=== PATIENT | female | born 1990 | race Hispanic/Latino ===

== ENCOUNTER 2017-12-06 10:38 | Emergency (ER) | payer OTHER, MEDICAID ==
[2017-12-06 10:43] VITALS: BMI 26.6
[2017-12-06 10:44] VITALS: TEMP 98.1
[2017-12-06] MEDS ORDERED: Morphine 5 MG/ML SYRINGE IM STA (10:52)
--- NOTE | 2017-12-06 11:09 | ED PDOC ---
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 Patient has a history of ligament tears and had knee surgery 10 years ago. She currently takes oral control. PMD: None Past Medical History Reviewed: Historical Data, Nursing Documentation, Vital Signs Vital Signs: Last Vital Signs Temp 98.1 F 12/06/17 10:43 Pulse 106 H 12/06/17 10:43 Resp 17 12/06/17 10:43 BP 144/79 12/06/17 10:43 Pulse Ox 100 12/06/17 10:43 - Medical History PMH: No Chronic Diseases - Surgical History Other surgeries: knee surgery - Family History Family History: States: Unknown Family Hx - Social History Alcohol: Occasional - Home Medications Home Medications: Ambulatory Orders Medication Instructions Recorded Ibuprofen [Motrin] 600 mg PO Q6H PRN #20 tab 12/06/17 - Allergies Allergies/Adverse Reactions: Allergies Allergy/AdvReac Type Severity Reaction Status Date / Time No Known Allergies Allergy Verified 12/06/17 10:51 Review of Systems ROS Statement: Except As Marked, All Systems Reviewed And Found Negative Musculoskeletal: Positive for: Leg Pain (right knee) Physical Exam - Reviewed Nursing Documentation Reviewed: Yes Vital Signs Reviewed: Yes - Physical Exam Appears: Positive for: Uncomfortable - ECG O2 Sat by Pulse Oximetry: 100 (RA) Pulse Ox Interpretation: Normal Medical Decision Making Medical Decision Making: Time: 10:52 Initial Impression: Right Knee Injury patellar dislocation Initial Plan: --XR Knee 3 Right Views --Morphine 4mg Time: 11:36 --XR Tibia Fibula Right --Ativan --Morphine 4mg Time: 12:16 --Patient still in pain. Dilaudid 1mg ordered. Time: 12:57 --Versed Time: 13:26 --XR Knee Right 3 Views XR KNEE RIGHT 3 VIEWS (pre-procedure) FINDINGS: BONES: Bone alignment and mineralization are normal. There is no acute fracture. JOINTS: There is lateral dislocation of the patella. OTHER FINDINGS: None. IMPRESSION: Lateral dislocation of the patella. No acute displaced fracture. WILL NEED TO DO PROCEDURE TO RELOCATE THE PATELLA. PT CONSENTED, VERBALLY AND SIGNED (INITIALLY COULDNT SIGN DUE TO CLINICAL CONDITION (AND PAIN), BUT THEN SHE DID SIGN) CONSENT FOR CONSCIOUS SEDATION (VERSED) PRIOR TO RELOCATION OF PATELLA DONE BY MYSELF USING EVAN EXTENTION OF THE KNEE FROM A FLEXED TO EXTENDED POSITION WHILE THE HIP IS FLEXED. AFTER THE PROCEDURE XRAYS CONFIRMED SUCCESSFUL RELOCATION. XR TIBIA FIBULA RIGHT FINDINGS: BONES: No fracture or destructive lesion. JOINT SPACES: There is lateral dislocation of the patella. OTHER FINDINGS: None. IMPRESSION: Lateral dislocation of the patella. No acute fracture. Time: 14:06 XR KNEE 3 VIEWS RIGHT (post-procedure) FINDINGS: BONES: There is no acute displaced fracture or bone destruction. Bone alignment and mineralization are normal. JOINTS: Status post close reduction of patellofemoral dislocation, near normal alignment of the patella. JOINT EFFUSION: Small joint effusion. OTHER FINDINGS: None. IMPRESSION: Successful closed reduction of patellofemoral dislocation. Time: 14:40 --Patient is awake, alert, stable vitals, and feels good now that patella is relocated. --Stable for discharge home. instructed pt and she understood that she needs to follow up with orthopedics in 2 days for further imaging/workup. -note-Patient denied test and signed waiver that she is not prior to xrays Scribe Attestation: Documented by Ariel Cordoba, acting as a scribe for Alba Riley MD Provider Scribe Attestation: All medical record entries made by the Scribe were at my direction and personally dictated by me. I have reviewed the chart and agree that the record accurately reflects my personal performance of the history, physical exam, medical decision making, and the department course for this patient. I have also personally directed, reviewed, and agree with the discharge instructions and disposition. Procedures - Joint Reduction Joint Reduction Site: patella (R) Conscious Sedation: Yes Reduction Attempts: 1 Post Joint Reduction Film: joint reduced Progress: Patient signed consent for versed prior to procedure. RN Janae present throughout procedure. 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 Airway equipment at bedside. After dilaudid and versed administered, relocated patella from a lateral position to the appropriate proper position. Patella was laterally displaced without complications. Patient tolerated procedure well Leg reexamined after procedure - neurovascularly intact Knee immobilizer placed immediately after Disposition - Clinical Impression Clinical Impression: Dislocated patella - Patient ED Disposition Is Patient to be Admitted: No Counseled Patient/Family Regarding: Studies Performed, Diagnosis, Need For Followup - Disposition Referrals: [facility] [Outside] Katie Fierro MD [Staff Provider] - Disposition: Routine/Home Disposition Time: 13:00 Condition: IMPROVED Additional Instructions: follow up with orthopedics as instructed within 2 days return to the ED with any worsening or concerning symptoms Prescriptions: Ibuprofen [Motrin] 600 mg PO Q6H PRN #20 tab PRN Reason: Pain, Moderate (4-7) Instructions: Moderate Sedation in Adults, How to Use Crutches, Knee Immobilizer (DC), Dislocated Kneecap (DC) Forms: [employer] (Polish) Proc Sedation PRE-PROCEDURE - Pre-Anesthesia Chief Complaint: Lower Extremity Problem/Injury - Pre-Procedure Airway Assessment ASA Criteria: 1 - Healthy, normal. 2 - Mild systemic disease (No functional limitations, mildline obesity, DM withot complications, Hypertention). 3 - Severe systemic disease (Some functional limitation, stable angina, morbid obesity, controlled COPD/Asthma/CHF). 4 - Sever systemic disease constant threat to life (Unstable angina, active symptoms of COPD/Asthma, CHF/ Hypertension. 5 - Moribund
[2017-12-06] MEDS ORDERED: Morphine 4 MG/ML VIAL IVP ONE (11:15)
[2017-12-06] MEDS ORDERED: HYDROmorphone 0.5 mg/0.5 ml ISec IVP STA (12:15)
[2017-12-06] MEDS ORDERED: Sodium Chloride 0.9% 1,000 ML IV STA (12:17)
[2017-12-06] MEDS ORDERED: HYDROmorphone 0.5 mg/0.5 ml ISec ONE (12:29)
[2017-12-06] MEDS ORDERED: Midazolam 2 MG/2 ML VIAL ONE (12:53)
[2017-12-06] MEDS ORDERED: Midazolam 2 MG/2 ML VIAL IV ONE (12:57)
--- NOTE | 2017-12-06 13:28 | RAD ---
PROCEDURE: Right Knee Radiographs. HISTORY: knee pain COMPARISON: None. FINDINGS: BONES: Bone alignment and mineralization are normal. There is no acute fracture. JOINTS: There is lateral dislocation of the patella. OTHER FINDINGS: None. IMPRESSION: Lateral dislocation of the patella. No acute displaced fracture.
--- NOTE | 2017-12-06 13:29 | RAD ---
PROCEDURE: Radiographs of the right tibia and fibula. HISTORY: possible knee dislocation COMPARISON: None available. TECHNIQUE: Frontal and lateral views obtained. FINDINGS: BONES: No fracture or destructive lesion. JOINT SPACES: There is lateral dislocation of the patella. OTHER FINDINGS: None. IMPRESSION: Lateral dislocation of the patella. No acute fracture.
[2017-12-06 13:33] VITALS: RESP 12
--- NOTE | 2017-12-06 14:07 | RAD ---
PROCEDURE: Right Knee Radiographs. HISTORY: Post reduction COMPARISON: Plain radiographs performed earlier the same day. FINDINGS: BONES: There is no acute displaced fracture or bone destruction. Bone alignment and mineralization are normal. JOINTS: Status post close reduction of patellofemoral dislocation, near normal alignment of the patella. JOINT EFFUSION: Small joint effusion. OTHER FINDINGS: None. IMPRESSION: Successful closed reduction of patellofemoral dislocation.
[2017-12-06 15:27] VITALS: BP 119/62
[2017-12-06 15:33] VITALS: O2SAT 100
[2017-12-06 15:58] VITALS: PULSE 98
== END 2017-12-06 15:58 | disposition home or self-care (01) ==
LOC: H.ER 10:38
DX: S83.002A Unspecified subluxation of left patella, initial encounter (principal); X50.9XXA Other and unspecified overexertion or strenuous movements or postures, initial encounter; Y92.89 Other specified places as the place of occurrence of the external cause; E66.01 Morbid (severe) obesity due to excess calories
CPT/HCPCS: 27562; 73562; 73590; 96361; 96372; 96374; 96375; 99285; J1170; J2060; J2250; J2270; J7040; L1830